=== PATIENT | male | born 1955 | race Caucasian/White ===

== ENCOUNTER 2019-09-30 06:21 | Inpatient (IN) | payer OTHER ==
[~2019-09-30] VITALS: Ht 180.3 cm; Wt 109.5 kg
[2019-09-30] VITALS (19 sets, daily range): BP systolic 86–135; BP diastolic 44–88
[~2019-09-30 06:21] MED LIST: NO HOME MEDS; cefazolin/dext.iso 2gm/50ml 50 ML IV ONE; famotidine 20mg tablet PO ONE; ringers solution, lacted 1,000 ML IV SCH; tranexamic acid inj. 1,000 MG in normal saline 100 ML IV ONE; vancomycin inj 1,500 MG in normal saline 300ml IV soln IV ONE
[2019-09-30] MEDS ORDERED: ceFAZolin 1000mg inj ONE (06:50)
[2019-09-30 07:58] LABS: BASOPHILS % (AUTO) 0.8 % (0-1); EOSINOPHILS # (AUTO) 0.1 X10'3 (0-0.9); EOSINOPHILS % (AUTO) 1.4 % (0-6); LYMPHOCYTES # (AUTO) 1.4 X10'3 (1.1-4.8); LYMPHOCYTES % (AUTO) 31.2 % (21-51); MEAN CORPUSCULAR HEMOGLOBIN 33.6 PG (27.0-31.0); MEAN CORPUSCULAR HGB CONC 34.6 g/dL (33.0-36.5); MEAN CORPUSCULAR VOLUME 96.9 FL (78-98); MEAN PLATELET VOLUME 8.5 FL (7.4-10.4); MONOCYTES # (AUTO) 0.5 X10'3 (0-0.9); MONOCYTES % (AUTO) 10.4 % (2-12); NEUTROPHILS # (AUTO) 2.6 X10'3 (1.8-7.7); NEUTROPHILS % (AUTO) 56.2 % (42-75); PRE OP HEMATOCRIT 46.7 % (42.0-52.0); PRE OP HEMOGLOBIN 16.2 g/dL (14.0-17.9); PRE OP PLATELET COUNT 197 X10'3 (140-440); RED BLOOD COUNT 4.82 X10'6 (4.70-6.10); RED CELL DISTRIBUTION WIDTH 13.2 % (11.5-14.5)
[2019-09-30 08:12] LABS: ALBUMIN 3.7 G/DL (3.4-5.0); ALBUMIN/GLOBULIN RATIO 1.2 (1.1-1.5); ALKALINE PHOSPHATASE 64 IU/L (46-116); BLOOD UREA NITROGEN 18 MG/DL (7-18); BUN/CREATININE RATIO 21.4 (5.4-32.0); CALCIUM 8.7 MG/DL (8.5-10.1); CHLORIDE 108 MMOL/L (99-107); CREATININE 0.84 MG/DL (0.60-1.10); PRE OP ALT 30 U/L (30-65); PRE OP ANION GAP 8 (8-16); PRE OP AST 22 U/L (10-37); PRE OP BILIRUB, TOTAL 0.7 MG/DL (0.0-1.0); PRE OP GLUCOSE 94 MG/DL (70-104); PRE OP POTASSIUM 4.9 MMOL/L (3.4-5.1); PRE OP SODIUM 139 MMOL/L (135-145); TOTAL CARBON DIOXIDE 23.2 MMOL/L (24-32); TOTAL PROTEIN 6.9 G/DL (6.4-8.2); eGFR > 90 ML/MIN
[2019-09-30] MEDS ORDERED: ondansetron/PF 4mg/2ml inj ONE (09:47)
[2019-09-30] MEDS ORDERED: sevoflurane 250ml liquid IH ONE (09:47)
[2019-09-30] MEDS ORDERED: fentaNYL/PF 50MCG/1 ML 2ML syringe ONE ×2 (10:05→11:41)
[2019-09-30] MEDS ORDERED: MIDAZolam 5mg/5ml vial ONE (10:05)
[2019-09-30] MEDS ORDERED: propofol inj 20 ML IV ONE (10:29)
[2019-09-30] MEDS ORDERED: ROPIVAcaine 0.5% (5mg/ml) 30ml vial ONE (10:29)
[2019-09-30] MEDS ORDERED: LIDOcaine 2% (20mg/ml) 5ml vial ONE (10:29)
[2019-09-30] MEDS ORDERED: dexamethasone sod phosphate 4mg/ml inj. ONE (10:30)
[2019-09-30] MEDS ORDERED: vancomycin 1,000mg inj ONE (10:49)
[2019-09-30] MEDS ORDERED: ringers solution, lacted 1,000 ML IV SCH (11:30)
[2019-09-30] MEDS ORDERED: morphine 4 MG/ML inj SYRINge IV PRN ×2 (11:30)
[2019-09-30] MEDS ORDERED: meperidine/PF 25mg/ml syringe IV PRN ×3 (11:30)
[2019-09-30] MEDS ORDERED: proCHLORperazine 10 MG/2 ml inj IV PRN (11:30)
[2019-09-30] MEDS ORDERED: ondansetron/PF 4mg/2ml inj IV PRN ×3 (11:30→13:10)
[2019-09-30] MEDS ORDERED: ROPIVAcaine 0.2%/PF PUMP/bolus 550 ML INTERSCALE SCH (12:00)
[2019-09-30] MEDS ORDERED: HYDROmorphone inj. 0.5 MG/0.5 ML DISP.SYRIN IV PRN (13:10)
[2019-09-30] MEDS ORDERED: diphenhydrAMINE 25mg capsule PO PRN ×4 (13:10)
[2019-09-30] MEDS ORDERED: magnesium hydroxide 30ml (MOM) UD suspension PO PRN ×2 (13:10)
[2019-09-30] MEDS ORDERED: oxyCODONE IR 5mg (immed. release) tablet PO PRN ×2 (13:10)
[2019-09-30] MEDS ORDERED: HYDROmorphone 1 mg/ml syringe IV PRN (13:10)
[2019-09-30] MEDS ORDERED: bisacodyl 10mg suppository rectal RC PRN ×2 (13:10)
[2019-09-30] MEDS ORDERED: acetaminophen 325mg tablet PO PRN ×2 (13:10)
[2019-09-30] MEDS ORDERED: rocuronium 10mg/ml inj IV ONE (13:11)
--- NOTE | 2019-09-30 13:25 | NUR ---
Received from OR via [facility] , accompanied by Anesthesiologist AUDREY and report given by Anesthesiolgist. PATIENT WITH 18G PIV IN LEFT UE RUNNING LR AT 100. PATIENT WITH 10L MASK ON, 98% SATURATIONS. RIGHT ANTERIOR SHOULDER WRAP AND ISLAND DRESSING IS ON AND CDI. PATIENT WITH + RADIAL PULSE PRESENT. SLING ON, POWDER PACK IN PLACE. PATIENT THRASHING AND ATTEMPTING TO GET OOB. STATING HE NEEDS TO GOTO THE BATHROOM. ATTEMPTING TO GET OUT OF BED. MULTIPLE VERBAL CUEING AND ASSISTANCE TO STAY IN BED. BEDPAN PLACED AND URINAL OFFERED. PATIENT PULLING AT IV IN LEFT UE.. REINFORED WITH COBAN TO KEEP IV IN PLACE. Addendum: 09/30/19 at 1346 by Gabe Zamora RN, RN Amended: Links added.
--- NOTE | 2019-09-30 14:01 | NUR ---
RECEIVED REPORT FROM ALEM REDDY IN RECOVERY
--- NOTE | 2019-09-30 14:35 | NUR ---
ALL CRITERIA FOR TRANSFER TO THE FLOOR HAS BEEN ACHIEVED. VSS. BED LOW, CALL LIGHT AND VS. SET IN PLACE. RN PRESENT TO ACCEPT CARE. PATIENT RESTING COMFORTABLY IN BED. BELONGINGS SENT WITH PATIENT. DRESSINGS CDI. PATIENT VSS. PRESENT AT BEDSIDE. ONE BAG OF BELONGINGS LABELED AND PLACED AT BEDSIDE. VSS. DENIES PAIN.PILLOW PLACED UNDER RIGHT ELBOW Addendum: 09/30/19 at 1445 by Gabe Zamora RN, RN Amended: Links added.
--- NOTE | 2019-09-30 14:44 | NUR ---
pt arrived on floor in ortho bed awake
[2019-09-30] MEDS: acetaminophen 325mg tablet PO SCH ×2 (16:26→19:18)
[2019-09-30] MEDS: ceFAZolin 1GM/D5W- ADD-VANTAGE 50 ML IV SCH ×2 (16:28→23:46)
[2019-09-30] MEDS ORDERED: tranexamic acid inj. 1,100 MG in normal saline 100ml IV soln 100 ML IV ONE (17:00)
--- NOTE | 2019-09-30 18:24 | NUR ---
GAVE REPORT TO ALEM WHITE
--- NOTE | 2019-09-30 19:07 | NUR ---
REPORT REC'D FROM ALEM ASTUDILLO.
[2019-09-30] MEDS: potassium cl 20mEq in 1/2 NS 1,000 ML IV SCH ×2 (19:17→21:08)
[2019-09-30] MEDS ORDERED: vancomycin/NS 1 GM ADD-VANTAGE 250 ML IV SCH (20:00)
--- NOTE | 2019-09-30 20:37 | NUR ---
PTS PIV IS DISLODGED/INFILTRATED.
[2019-09-30] MEDS ORDERED: sennosides 8.6mg tablet PO SCH ×2 (21:00)
[2019-09-30] MEDS: gabapentin 300mg capsule PO SCH (21:59)
[2019-10-01] MEDS: acetaminophen 325mg tablet PO SCH ×2 (01:49→07:45)
[2019-10-01 02:00] VITALS: BP 118/73
[2019-10-01] MEDS: potassium cl 20mEq in 1/2 NS 1,000 ML IV SCH (05:08)
[2019-10-01 06:00] VITALS: BP 120/78
--- NOTE | 2019-10-01 06:01 | NUR ---
REPORT GIVEN TO ALEM ASTUDILLO.
--- NOTE | 2019-10-01 06:19 | NUR ---
received report from zora mccollum
[2019-10-01 06:29] LABS: BASOPHILS # (AUTO) 0.1 X10'3 (0-0.2); BASOPHILS % (AUTO) 0.5 % (0-1); EOSINOPHILS % (AUTO) 0.3 % (0-6); HEMATOCRIT 41.8 % (42.0-52.0); HEMOGLOBIN 14.4 g/dl (14.0-17.9); LYMPHOCYTES # (AUTO) 1.7 X10'3 (1.1-4.8); LYMPHOCYTES % (AUTO) 15.5 % (21-51); MEAN CORPUSCULAR HGB CONC 34.4 g/dL (33.0-36.5); MEAN CORPUSCULAR VOLUME 96.1 FL (78-98); MEAN PLATELET VOLUME 9.8 FL (7.4-10.4); NEUTROPHILS # (AUTO) 8.2 X10'3 (1.8-7.7); NEUTROPHILS % (AUTO) 74.7 % (42-75); PLATELET COUNT 149 X10'3 (140-440); RED BLOOD COUNT 4.35 X10'6 (4.70-6.10); RED CELL DISTRIBUTION WIDTH 13.5 % (11.5-14.5)
[2019-10-01] MEDS ORDERED: ASPI-1 PO (07:00)
[2019-10-01 07:09] LABS: ANION GAP 9 (8-16); CHLORIDE 107 MMOL/L (99-107); POTASSIUM 4.5 MMOL/L (3.5-5.1); SODIUM 140 MMOL/L (135-145); TOTAL CARBON DIOXIDE 23.8 MMOL/L (24-32)
[2019-10-01] MEDS: gabapentin 300mg capsule PO SCH (07:43)
[2019-10-01] MEDS ORDERED: aspirin 325mg tablet PO SCH ×2 (08:30)
[2019-10-01 10:00] VITALS: BP 115/75
--- NOTE | 2019-10-01 11:20 | NUR ---
pt d/c with instructions, understanding of instructions and w/all belongings in wheelchair accompanied by to private vehicle to go home and f/u w/surgeon
--- NOTE | 2019-10-01 11:52 | NUR ---
Joint replacement consult: Pt seen by ORESTES for written/verbal high protein ed w/ RD contact information provided. Pt d/c during RD visit. Addendum: 10/01/19 at [address] Amended: Links added.
[2019-10-01] MEDS ORDERED: celeCOXIB 100mg capsule PO SCH (20:00)
[2019-10-02] MEDS ORDERED: acetaminophen 325mg tablet PO PRN (13:10)
== END 2019-10-01 11:24 | disposition home or self-care (01) | DRG 483 ==
LOC: PAS IN 06:21 → EDSTATUS 10:30 → ORTHO 4S 14:30
PROVIDERS: ADMIT Orthopaedic Surgery; ATTEND Orthopaedic Surgery
PROC: 3E0T3BZ Introduction of Anesthetic Agent into Peripheral Nerves and Plexi, Percutaneous Approach (ICD-10-PCS; 2019-09-30)
PROC: 0RRJ0JZ Replacement of Right Shoulder Joint with Synthetic Substitute, Open Approach (ICD-10-PCS; principal; 2019-09-30 09:47)
DX: M19.011 Primary osteoarthritis, right shoulder (principal); E66.9 Obesity, unspecified; Z68.33 Body mass index [BMI] 33.0-33.9, adult
CPT/HCPCS: 36415; 73020; 80051; 80053; 85025; 93005; 97110; 97116; 97161; G0378; J0690; J1100; J2001; J2250; J2405; J2704; J2795; J3010; J3370; J3480; J7120